=== PATIENT | female | born 1950 | race Caucasian/White ===

== ENCOUNTER 2017-06-21 14:12 | Outpatient (CLI) | payer MEDICARE | END 2017-06-21 14:13 | disposition home or self-care (01) | LOC: BICMAMMO 14:12 | PROVIDERS: ATTEND Internal Medicine Medical Oncology | DX: N63.10 Unspecified lump in the right breast, unspecified quadrant (principal); Z85.3 Personal history of malignant neoplasm of breast; Z80.3 Family history of malignant neoplasm of breast | CPT/HCPCS: 77066; G0279 ==

== ENCOUNTER 2017-09-05 10:08 | Day surgery (SDC) | payer MEDICARE ==
[2017-09-03 15:07] VITALS: BMI 49.9
[2017-09-05] MEDS ORDERED: Lidocaine 1% PF 5 ML VIAL ONE (12:32)
[2017-09-05] MEDS ORDERED: PROPOFOL 200 MG/20 ML VIAL ONE (12:32)
--- NOTE | 2017-09-05 13:20 | OP ---
DATE OF PROCEDURE: 09/05/2017 GI ENDOSCOPY NOTE SURGEON: Jose A Lewis M.D. RN VASCULAR SURGEON: None. PROCEDURE: Esophagogastroduodenoscopy, diagnostic INDICATIONS: 1. Melena. 2. Epigastric pain. MEDICATIONS: See anesthesia record. FINDINGS: After discussion of the risks, benefits and alternatives of the procedure, informed consent was obtained and witnessed. Pre-endoscopic cardiopulmonary examination was satisfactory. Timeout was performed before sedation was achieved. Sedation was achieved with anesthesia assistance in the endoscopy unit. A Pentax adult upper endoscope was placed into the oropharynx and passed through the cricopharyngeus under direct visualization. The esophageal mucosa appeared normal throughout with a normal-appearing Z-line at 36 cm from the incisors. The endoscope was then advanced into a small gastric pouch. This measures only about 4 cm in length with the gastrojejunal anastomosis at 40 cm from the incisors. Forward and retroflexed views of the gastric pouch were obtained. There is some exposed suture material, but the pouch otherwise appears normal. The endoscope was then advanced beyond the gastrojejunal anastomosis and down the efferent limb of jejunum. The efferent limb was examined to a distance of 100 cm. The distal anastomosis was not reached. The entire visualized portion of jejunum appeared completely normal. There was no evidence of any ulceration or erosion, no old blood or active bleeding, no bleeding lesion. The upper endoscope was completely withdrawn and the patient allowed to recover. The patient tolerated the procedure well. There were no immediate post-procedure complications. IMPRESSION: 1. Normal post Poornima-en-Y examination. 2. Small gastric pouch. 3. Normal jejunum exam at 100 cm down the efferent limb. Distal anastomosis was not reached. RECOMMENDATIONS: 1. Monitor stool for recurrence of melena. 2. I would continue her on PPI therapy for 2 more months. It is possible that the patient developed ulceration or erosive disease in her gastric remnant which is unable to be reached endoscopically. Would treat as if this were the case with 2 months of PPI therapy. 3. Restart aspirin and Plavix at the discretion of her linen room custodian. 4. Follow up in the GI clinic as needed. LEYLA
== END 2017-09-05 13:40 | disposition home or self-care (01) ==
LOC: SDC 10:08
PROVIDERS: ATTEND Internal Medicine
PROC: 0DJ08ZZ Inspection of Upper Intestinal Tract, Via Natural or Artificial Opening Endoscopic (ICD-10-PCS; principal; 2017-09-05)
DX: R10.13 Epigastric pain (principal); K92.1 Melena; Z79.82 Long term (current) use of aspirin; Z79.899 Other long term (current) drug therapy
CPT/HCPCS: J2001; J2704

== ENCOUNTER 2018-10-08 13:33 | Outpatient (CLI) | payer MEDICARE ==
--- NOTE | 2018-10-08 14:30 | MMO ---
Bilateral MAMMO Bilat Diag [facility]. CLINICAL HISTORY: Patient is 68 years old and is seen for diagnostic exam. The patient has the following family history of breast cancer: maternal grandmother, at age 70 and paternal aunt. The patient has a history of malignant (generic) in the right breast in 2012. The patient has a history of right needle biopsy in 2012 - malignant, right Lumpectomy in 2012 - malignant, left needle biopsy in 2009 - benign and left Excisional Biopsy in 2009 - benign. VIEWS: The views performed were: bilateral craniocaudal with tomosynthesis; bilateral mediolateral oblique with tomosynthesis; bilateral mediolateral with tomosynthesis; left craniocaudal magnification; and left mediolateral magnification. FILMS COMPARED: The present examination has been compared to prior imaging studies performed at [facility] on 08/02/2015, 08/01/2016 and 06/21/2017, and at [facility] on 08/12/2013. MAMMOGRAM FINDINGS: There are scattered fibroglandular densities. There are post-surgical scars and biopsy clips seen in both breasts. There are no suspicious masses, suspicious calcifications, or new areas of architectural distortion. IMPRESSION: THERE IS NO MAMMOGRAPHIC EVIDENCE OF MALIGNANCY. A ROUTINE FOLLOW-UP MAMMOGRAM IN 1 YEAR IS RECOMMENDED. THE RESULTS OF THIS EXAM WERE SENT TO THE PATIENT. ACR BI-RADS Category 2 - Benign finding MAMMOGRAPHY NOTE: 1. A negative mammogram report should not delay a biopsy if a dominant of clinically suspicious mass is present. 2. Approximately 10% to 15% of breast cancers are not detected by mammography. 3. Adenosis and dense breasts may obscure an underlying neoplasm. Reported by: Pan BARRERA Electonically Signed: [id number]
== END 2018-10-08 13:34 | disposition home or self-care (01) ==
LOC: BICMAMMO 13:33
PROVIDERS: ATTEND Internal Medicine Medical Oncology
DX: C50.911 Malignant neoplasm of unspecified site of right female breast (principal); D50.9 Iron deficiency anemia, unspecified; N18.2 Chronic kidney disease, stage 2 (mild); Z80.3 Family history of malignant neoplasm of breast
CPT/HCPCS: 77066; G0279

== ENCOUNTER 2021-05-01 12:39 | Outpatient (CLI) | payer MEDICARE | END 2021-05-01 12:40 | disposition home or self-care (01) | LOC: BICMAMMO 12:39 | PROVIDERS: ATTEND Internal Medicine | DX: Z12.31 Encounter for screening mammogram for malignant neoplasm of breast (principal); Z80.3 Family history of malignant neoplasm of breast; Z85.3 Personal history of malignant neoplasm of breast; Z98.890 Other specified postprocedural states | CPT/HCPCS: 77063; 77067 ==

== ENCOUNTER 2024-12-03 14:55 | Outpatient (CLI) | payer MEDICARE | END 2024-12-03 14:56 | disposition home or self-care (01) | LOC: RAD 14:55 | PROVIDERS: ATTEND Internal Medicine | DX: R06.00 Dyspnea, unspecified (principal) | CPT/HCPCS: 71046 ==